=== PATIENT | male | born 1945 | race Caucasian/White ===

== ENCOUNTER 2024-04-02 07:40 | Outpatient (RCR) | payer SELFPAY | END 2024-04-23 23:59 | disposition home or self-care (01) | LOC: CR 07:40 | PROVIDERS: PCP Thoracic Surgery (Cardiothoracic Vascular Surgery); Referring Provider Thoracic Surgery (Cardiothoracic Vascular Surgery); Visit Provider Thoracic Surgery (Cardiothoracic Vascular Surgery) | DX: Z95.5 Presence of coronary angioplasty implant and graft (principal) | CPT/HCPCS: 93798; 94626 ==

== ENCOUNTER 2024-05-01 07:57 | Outpatient (RCR) | payer MEDICARE, SELFPAY | END 2024-05-24 23:59 | disposition home or self-care (01) | LOC: CR 07:57 | PROVIDERS: PCP Thoracic Surgery (Cardiothoracic Vascular Surgery); Referring Provider Thoracic Surgery (Cardiothoracic Vascular Surgery); Visit Provider Thoracic Surgery (Cardiothoracic Vascular Surgery) | DX: Z95.5 Presence of coronary angioplasty implant and graft (principal) | CPT/HCPCS: 93798 ==

== ENCOUNTER 2024-05-27 12:59 | Outpatient (RCR) | payer MEDICARE, OTHER, SELFPAY | END 2024-06-21 23:59 | disposition home or self-care (01) | LOC: CR 12:59 | PROVIDERS: PCP Thoracic Surgery (Cardiothoracic Vascular Surgery); Referring Provider Thoracic Surgery (Cardiothoracic Vascular Surgery); Visit Provider Thoracic Surgery (Cardiothoracic Vascular Surgery) | DX: Z95.1 Presence of aortocoronary bypass graft (principal) | CPT/HCPCS: 93798 ==

== ENCOUNTER 2024-06-25 14:22 | Outpatient (RCR) | payer MEDICARE, OTHER, SELFPAY | END 2024-07-22 23:59 | disposition home or self-care (01) | LOC: CR 14:22 | PROVIDERS: PCP Thoracic Surgery (Cardiothoracic Vascular Surgery); Referring Provider Thoracic Surgery (Cardiothoracic Vascular Surgery); Visit Provider Thoracic Surgery (Cardiothoracic Vascular Surgery) | DX: Z95.5 Presence of coronary angioplasty implant and graft (principal) | CPT/HCPCS: 93798 ==